=== PATIENT | male | born 1965 | race Caucasian/White ===

== ENCOUNTER → 2021-01-01 | Outpatient (CLI) | payer BC ==
[~2021-01-01] MED LIST: CENTRUM SILVER1 TAB PO; HCTZ12.5TAB PO; LEVAQUIN 750MG750 M1 PO; MINOCYCLIN100 MG/CAP PO; MOBIC15 MG PO; ZYLOPRIM 100MG100 MG PO
== END ==
LOC: ZCOL.LAB 18:14
DX: L08.9 Local infection of the skin and subcutaneous tissue, unspecified (principal)

== ENCOUNTER 2021-01-15 10:24 | Outpatient (CLI) | payer BC ==
[~2021-01-15] VITALS: Ht 195.6 cm; Wt 188.7 kg
[2021-01-15 11:37] LABS: BASO # 0.1 (0.0-0.2); BASO % 1.6 % (0.0-2.0); EOS # 0.5 (0.0-0.7); EOS % 5.8 % (0-4.0); GRAN # 4.3 (1.4-6.5); GRAN % 53.1 % (42.2-75.2); HEMATOCRIT 43.7 % (42.0-52.0); HEMOGLOBIN 14.5 g/dl (13.5-18.0); LYMPH # 2.3 (1.2-3.4); LYMPH % 28.1 % (20.0-51.0); MEAN CELL VOLUME 87 fl (80.0-100.0); MEAN CORPUSCULAR HEMOGLOBIN 29 pg (27.0-31.0); MEAN CORPUSCULAR HGB CONC 33 g/dl (33.0-37.0); MEAN PLATELET VOLUME 9.7 fl (7.4-10.4); MONO # 0.9 (0.1-0.6); MONO % 10.9 % (1.7-9.3); PLATELET COUNT 235 K/mm3 (130-400); REDCELL DISTRIBUTION WIDTH-CV 13.8 % (11.5-14.5)
[2021-01-15 11:49] LABS: ALBUMIN 4.2 gm/dL (3.5-5.0); BILIRUBIN,TOTAL 0.5 mg/dL (0.0-1.0); C-REACTIVE PROTEIN 1.6 mg/dL (0.0-0.9); CREATININE, serum 0.87 (0.66-1.25); POTASSIUM 4.2 mmol/L (3.4-5.0)
[2021-01-15] MEDS ORDERED: ZYLOPRIM 100MG100 MG PO (11:55)
[2021-01-15] MEDS ORDERED: CENTRUM SILVER1 TAB PO (11:56)
[2021-01-15] MEDS ORDERED: HCTZ12.5TAB PO (11:56)
[2021-01-15 12:00] VITALS: BP 127/86; PULSE 74; TEMP 98.2
[2021-01-15 12:14] LABS: ERYTHROCYTE SEDIMENTATION RATE 13 mm/hr (0-30)
--- NOTE | 2021-01-15 13:05 | NUR ---
PT amb to exit at this time. Pt was monitored for >30 minutes after antibiotic administration and has no developed any sign of adverse or allergic reaction. PICC wrapped with love wrap. pt is amb with steady gait with .
== END 2021-01-15 13:15 | disposition home or self-care (01) ==
LOC: EUO 10:24
PROVIDERS: Internal Medicine Infectious Disease
DX: M86.10 Other acute osteomyelitis, unspecified site (principal)
CPT/HCPCS: C1751; C1892; J0696; J0878

== ENCOUNTER 2021-01-29 11:01 | Outpatient (CLI) | payer BC ==
--- NOTE | 2021-01-29 11:00 | NUR ---
Received a voicemail from patient's . She reported unable to flush red lumen of his PICC. Advised to come to express unit for an evaluation. Patient's right upper arm PICC is intact. Dressing dated 01/27/2021. Chlorhexidine impregnated disc is present. Attempted to flush thread port with slight resistance noted. I had patient call turn his head and cough. Flushed port with patient coughing. Both ports flushed with 20 mL normal saline with good blood return noted. No signs or symptoms of IV complications noted. Advised may contact me for any comments, questions, and/or concerns. Patient voiced understanding of instructions.
[~2021-01-29 11:01] MED LIST changes: -LEVAQUIN 750MG750 M1 PO; -MINOCYCLIN100 MG/CAP PO; -MOBIC15 MG PO
[2021-01-29 11:11] VITALS: BP 117/87; PULSE 84; TEMP 98.4
[2021-01-29] MEDS ORDERED: LEVAQUIN 750MG750 M1 PO (11:25)
[2021-01-29] MEDS ORDERED: MINOCYCLIN100 MG/CAP PO (11:25)
[2021-01-29] MEDS ORDERED: MOBIC15 MG PO (11:25)
== END 2021-01-29 11:27 | disposition home or self-care (01) ==
LOC: EUO 11:01
DX: B99.9 Unspecified infectious disease (principal)

== ENCOUNTER 2021-02-26 10:45 | Outpatient (CLI) | payer BC ==
[~2021-02-26] VITALS: Ht 195.6 cm; Wt 187.1 kg
[~2021-02-26 10:45] MED LIST changes: +LEVAQUIN 750MG750 M1 PO; +MINOCYCLIN100 MG/CAP PO; +MOBIC15 MG PO
[2021-02-26 11:22] VITALS: BP 137/87; PULSE 76; TEMP 98
== END 2021-02-26 12:32 ==
LOC: EUO 10:45
DX: B99.9 Unspecified infectious disease (principal)

== ENCOUNTER → 2021-07-02 | Outpatient (CLI) | payer BC | LOC: ZCOL.LAB 17:57 | DX: I87.2 Venous insufficiency (chronic) (peripheral) (principal); L97.528 Non-pressure chronic ulcer of other part of left foot with other specified severity; I83.92 Asymptomatic varicose veins of left lower extremity; E66.01 Morbid (severe) obesity due to excess calories; L97.929 Non-pressure chronic ulcer of unspecified part of left lower leg with unspecified severity ==

== ENCOUNTER 2022-09-01 11:29 | Day surgery (SDC) | payer BC ==
[~2022-09-01] VITALS: Ht 195.6 cm; Wt 179.6 kg
[2022-09-01] VITALS (17 sets, daily range): BP systolic 114–139; BP diastolic 81–95; PULSE 67–78; TEMP 98.3
[2022-09-01 11:19] LABS: HEMOGLOBIN 17.9 g/dl (13.5-18.0); MEAN CELL VOLUME 87 fl (80.0-100.0); MEAN CORPUSCULAR HEMOGLOBIN 29 pg (27-31); MEAN CORPUSCULAR HGB CONC 34 g/dl (33.0-37.0); PLATELET COUNT 209 K/mm3 (130-400); RED BLOOD COUNT 6.13 M/mm3 (4.20-5.60); REDCELL DISTRIBUTION WIDTH-CV 14.1 % (11.5-14.5)
[2022-09-01 11:20] LABS: HEMATOCRIT 53.4 % (42.0-52.0)
[~2022-09-01 11:29] MED LIST changes: +ARIMIDEX1 MG PO; +BETAPACE 80MG80 MG PO; +CLOMID50 MG PO; +COZAAR 25MG25 MG/TAB PO; +ELIQUIS 5MG PO; +LASIX 20MG TABL20 MG PO; +LASIX 40MG TABL40 MG PO; +OXYTOCIN PO; +TADALAFIL PO; +TESTOSTERONE INJ
[2022-09-01 11:32] LABS: INR 1.1 (0.8-3.0); PROTHROMBIN TIME 12.9 SECONDS (9.7-12.8)
[2022-09-01 11:35] LABS: PARTIAL THROMBOPLASTIN TIME 35.7 SECONDS (26.0-37.0)
[2022-09-01] MEDS ORDERED: ELIQUIS 5MG PO (11:38)
[2022-09-01] MEDS ORDERED: COZAAR 50MG50 MG/TAB PO (11:41)
[2022-09-01] MEDS ORDERED: LASIX 40MG TABL40 MG PO (11:41)
[2022-09-01] MEDS ORDERED: BETAPACE 80MG80 MG PO (11:41)
[2022-09-01] MEDS ORDERED: TYLENOL PM EXTR1 TA1 PO (11:42)
[2022-09-01 11:52] LABS: CALCIUM 9.6 mg/dL (8.4-10.2); CREATININE, serum 1.04 mg/dL (0.72-1.25)
--- NOTE | 2022-09-01 12:11 | NUR ---
PLEASE SEE MERGE DOCUMENTATION FOR RECORD OF INTERVENTIONS, VITAL SIGNS AND MEDICATIONS ADMINISTERED DURING THE PROCEDURE.
[2022-09-01 12:26] LABS: POTASSIUM 4.3 mmol/L (3.5-4.5)
--- NOTE | 2022-09-01 15:31 | NUR ---
Report to Vivien Ivy.
--- NOTE | 2022-09-01 17:01 | NUR ---
Discharge instructions given to pt.Pt verbalizes understanding.Dressing to right hand observed clean,dry,intact and soft to touch.Pt escortedout via wheelchair by this nurse.
== END 2022-09-01 17:16 ==
LOC: COL.CAR 11:29
PROVIDERS: Internal Medicine Cardiovascular Disease
DX: I42.9 Cardiomyopathy, unspecified (principal); I48.0 Paroxysmal atrial fibrillation; I34.1 Nonrheumatic mitral (valve) prolapse; I10 Essential (primary) hypertension; Z79.01 Long term (current) use of anticoagulants
CPT/HCPCS: J1644; J2250; J3010; Q9967